=== PATIENT | female | born 1995 | race Caucasian/White ===

== ENCOUNTER 2017-06-03 23:38 | Inpatient (IN) | payer BC ==
[~2017-06-03] VITALS: Ht 175.3 cm; Wt 98.0 kg
[2017-06-04] VITALS (18 sets, daily range): BP systolic 95–143; BP diastolic 64–102; PULSE 83–106; RESP 16–18; TEMP 98.2–98.6; O2SAT 98–100
[2017-06-04] MEDS ORDERED: LACTATED RINGER'S 1000 ML INJ 1,000 ML IV PRN (00:25)
[2017-06-04] MEDS ORDERED: SODIUM CHLORID 0.9% 500 ML INJ 500 ML IV PRN (00:30)
[2017-06-04] MEDS ORDERED: CITRIC ACID-SODIUM CITRATE LIQ 30 ML UDC PO SCH (00:30)
[2017-06-04] MEDS ORDERED: LIDOCAINE HCL 1% 50 ML VIAL INFIL PRN (00:30)
[2017-06-04] MEDS ORDERED: MINERAL OIL 10 ML VIAL TOPICAL PRN (00:30)
[2017-06-04] MEDS ORDERED: OXYTOCIN 30 UNITS-500ML PREMIX 500 ML IV ONE (00:30)
[2017-06-04] MEDS ORDERED: LIDOCAINE HCL 1% 50 ML VIAL I-DERMAL PRN (00:30)
--- NOTE | 2017-06-04 00:30 | HHI.HP ---
HPI Chief Complaint Contractions Date Seen: Jun 04, 2017 Time Seen: 00:25 Travel History International Travel<30 Days: No Contact w/Intl Traveler<30Days: No Known Affected Area: No History of Present Illness HPI Patient is 22-year-old white female at [address] herrera for care presents in labor. She denies bleeding or rupture the membranes, heart rate tracing is reactive, and contractions are noted on the monitor every 3-4 minutes Weeks Gestation: 39 Para: 1 : 3 History Obstetric History Obstetric History One vaginal delivery 1 early loss Social History Alcohol Use: No Tobacco Use: No Substance Abuse: No Allergies-Medications (Allergen,Severity, Reaction): Coded Allergies: No Known Allergies (Unverified , 05/28/16) Home Meds No Active Prescriptions or Reported Meds Review of Systems General / Constitutional: No: Fever, Weight Gain, Chills, Other Eyes: No: Diploplia, Blurred Vision, Visual changes, Pain, Photophobia HENT: No: Headaches, Vertigo, Lightheadedness Cardiovascular: No: Irregular Rhythm, Chest Pain or Discomfort, Palpitations, Tachycardia, Syncope, Varicosities, Edema, Cyanosis Respiratory: No: Cough, Short of Breath, Other Gastrointestinal: No: Nausea, Vomiting, Diarrhea Genitourinary: No: Decreased Urinary Output, Oliguria Musculoskeletal: No: Limited ROM, Weakness, Cramping, Edema, Pain Skin: No Rash, No Itching, No Dryness, No Lumps, No Change in Pigmentation, No Change in Nails, No Alopecia, No Lesions Neurologic: No: Weakness, Dizziness, Syncope, Focal Abnormalities, Coordination Problem, Headache, Slurred Speech, Seizures Psychiatric: No: Depression, Suicidal Ideations, Homicidal Ideation Endocrine: No: Heat Intolerance, Cold Intolerance, Polydipsia, Polyuria, Other Physical Exam Narrative GENERAL: Well-nourished, well-developed patient. SKIN: Warm and dry. HEAD: Normocephalic and atraumatic. EYES: No scleral icterus. No injection or drainage. ENT: No nasal drainage noted. Mucous membranes pink. Airway patent. NECK: Supple, trachea midline. No JVD. CARDIOVASCULAR: Regular rate and rhythm without murmurs, gallops, or rubs. RESPIRATORY: Breath sounds equal bilaterally. No accessory muscle use. BREASTS: Bilateral exam showed no masses , no retractions, no nipple discharge. ABDOMEN/GI: Abdomen soft, non-tender, bowel sounds present, no rebound, no guarding Gravid to [-39] weeks size Fundal Height: [39-] GENITOURINARY: External Genitalia: intact and normal in appearance BUS glands: [-] Cervix: [-] Dilatation: [-6] Effacement: [90-] Station: [-1] Presentation: [vtx-] Membranes: [intact ] Uterine Contractions: [q 3-4 min-] FHT's: Category: [-1] Baseline: [-133] Reactive: [-yes] Variability: [mod-] Decels: [0-] EXTREMITIES: No cyanosis or edema. BACK: Nontender without obvious deformity. No CVA tenderness. NEUROLOGICAL: Awake and alert. Motor and sensory grossly within normal limits. Five out of 5 muscle strength in all muscle groups. Normal speech. Caprini VTE Risk Assessment Caprini VTE Risk Assessment: No/Low Risk (score <= 1) Caprini Risk Assessment Model Point Value = 1 Point Value = 2 Point Value = 3 Point Value = 5 Age 41-60 Minor surgery BMI > 25 kg/m2 Swollen legs Varicose veins or History of unexplained or recurrent spontaneous Oral contraceptives or hormone replacement Sepsis (< 1 month) Serious lung disease, including pneumonia (< 1 month) Abnormal pulmonary function Acute myocardial infarction Congestive heart failure (< 1 month) History of inflammatory bowel disease Medical patient at bed rest Age 61-74 Arthroscopic surgery Major open surgery (> 45 min) Laparoscopic surgery (> 45 min) Malignancy Confined to bed (> 72 hours) Immobilizing plaster cast Central venous access Age >= 75 History of VTE Family history of VTE Factor V Leiden Prothrombin [id number] Lupus anticoagulant Anticardiolipin antibodies Elevated serum homocysteine Heparin-induced thrombocytopenia Other congenital or acquired thrombophilia Stroke (< 1 month) Elective arthroplasty Hip, pelvis, or leg fracture Acute spinal cord injury (< 1 month) Prophylaxis Regimen Total Risk Factor Score Risk Level Prophylaxis Regimen 0-1 Low Early ambulation 2 Moderate Order ONE of the following: *Sequential Compression Device (SCD) *Heparin 5000 units SQ BID 3-4 Higher Order ONE of the following medications: *Heparin 5000 units SQ TID *Enoxaparin/Lovenox 40 mg SQ daily (WT < 150 kg, CrCl > 30 mL/min) *Enoxaparin/Lovenox 30 mg SQ daily (WT < 150 kg, CrCl > 10-29 mL/min) *Enoxaparin/Lovenox 30 mg SQ BID (WT < 150 kg, CrCl > 30 mL/min) AND/OR *Sequential Compression Device (SCD) 5 or more Highest Order ONE of the following medications: *Heparin 5000 units SQ TID (Preferred with Epidurals) *Enoxaparin/Lovenox 40 mg SQ daily (WT < 150 kg, CrCl > 30 mL/min) *Enoxaparin/Lovenox 30 mg SQ daily (WT < 150 kg, CrCl > 10-29 mL/min) *Enoxaparin/Lovenox 30 mg SQ BID (WT < 150 kg, CrCl > 30 mL/min) AND *Sequential Compression Device (SCD) Data Data Orders Orders Ob (2e) Additional Admit Info (06/04/17 00:14) Add Patient To Providers List (06/04/17 ) Admit To Inpatient (06/04/17 ) Vital Signs (Adult) .Per protocol (06/04/17 00:25) Heart (06/04/17 00:25) Amnioinfusion (06/04/17 00:25) Urinary Catheter Management .ONCE (06/04/17 00:25) Diet Liquid (06/04/17 Breakfast) Lactated Ringer's 1000 Ml Inj (Lr 1000 M (06/04/17 00:25) Lactated Ringer's 1000 Ml Inj (Lr 1000 M (06/04/17 00:25) Sodium Chlorid 0.9% 500 Ml Inj (Ns 500 M (06/04/17 00:30) Sodium Chlor 0.9% 1000 Ml Inj (Ns 1000 M (06/04/17 00:45) Lidocaine 1% Inj (50 Ml) (Xylocaine 1% I (06/04/17 00:30) Citric Acid-Sodium Citrate Liq (Bicitra (06/04/17 00:30) Fentanyl Inj (Fentanyl Inj) (06/04/17 00:30) Fentanyl Inj (Fentanyl Inj) (06/04/17 00:30) Complete Blood Count With Diff (06/04/17 00:25) Hold Clot (06/04/17 00:25) Abo/Rh Blood Type (06/04/17 00:25) Urinalysis - C+S If Indicated (06/04/17 00:) Drug Screen, Random Urine (06/04/17:) Resp Oxygen Non Rebreathe Mask (06/04/17 ) ^ Epidural / Intrathecal Infus (06/04/17:) Oxytocin 30 Units-500ml Premix (Pitocin (06/04/17:30) Lidocaine 1% Inj (50 Ml) (Xylocaine 1% I (06/04/17) Light Mineral Oil (Muri-Lube Oil) (06/04/17 00:30) Specimen To Be Collected PRN (06/04/17 00:25) Specimen To Be Collected PRN (06/04/17 00:25) Assessment/Plan Assessment and Plan Patient is 22-year-old white female at 39 weeks presents in labor her cervix is 6 cm dilated with bulging membranes heart rate tracing is reactive and contractions noted on the monitor. Impression--39 weeks in active labor Plan--admit for labor management and anticipate vaginal delivery Shaheen Ashraf II, MD Jun 04, 2017 00:30
[2017-06-04] MEDS: LACTATED RINGER'S 1000 ML INJ 1,000 ML IV SCH ×3 (00:36→16:30)
[2017-06-04] MEDS ORDERED: SODIUM CHLOR 0.9% 1000 ML INJ 1,000 ML IV PRN (00:45)
[2017-06-04 01:00] LABS: AUTOMATED NEUTROPHIL # 10.5 TH/MM3 (1.8-7.7); BASOPHIL # 0.1 TH/MM3 (0-0.2); BASOPHIL % 0.7 % (0.0-2.0); EOSINOPHIL # 0.1 TH/MM3 (0-0.4); EOSINOPHIL % 0.6 % (0.0-4.0); HEMATOCRIT 38.5 % (35.0-46.0); HEMO FLAGS DIFF FINAL; LYMPH % 20.1 % (9.0-44.0); LYMPHOCYTE # 2.9 TH/MM3 (1.0-4.8); MEAN CELL VOLUME 82.8 FL (80.0-100.0); MEAN CORPUSCULAR HEMOGLOBIN 27.2 PG (27.0-34.0); MEAN CORPUSCULAR HGB CONC 32.9 % (32.0-36.0); MONO % 6.7 % (0.0-8.0); NEUT % 71.9 % (16.0-70.0); PLATELET COUNT 240 TH/MM3 (150-450); RED BLOOD COUNT 4.66 MIL/MM3 (4.00-5.30); RED CELL DISTRIBUTION WIDTH 14.8 % (11.6-17.2); WHITE BLOOD COUNT 14.6 TH/MM3 (4.0-11.0)
[2017-06-04 01:04] LABS: BLOOD, URINE SMALL (NEG); COMMENT (UR) CULT NOT INDICATED; CULTURE IF INDICATED CULT NOT INDICATED; GLUCOSE,URINE NEG (NEG); KETONE, URINE NEG (NEG); MUCUS URINE FEW /lpf (OCC); NITRITE,URINE NEG (NEG); PH, URINE 6.5 (5.0-8.5); SQUAMOUS EPITHELIAL CELL URINE 1 /hpf (0-5); URINE COLOR LIGHT-YELLOW (YELLW/STRAW)
[2017-06-04] MEDS ORDERED: ePHEDrine/NS 25 MG/5 ML SYR ONE (01:11)
[2017-06-04] MEDS ORDERED: fentaNYL 2MCG-BUPIV 0.125% INJ 100 ML ONE (01:11)
[2017-06-04] MEDS ORDERED: fentaNYL 2MCG-BUPIV 0.125% 100 ML EPIDURAL SCH (01:30)
[2017-06-04] MEDS ORDERED: NO SYSTEM NARCOTICS PRN (01:30)
[2017-06-04] MEDS ORDERED: DO NOT ADMINISTER ANTICOAGULANTS PRN (01:30)
[2017-06-04] MEDS ORDERED: ePHEDrine/NS 25 MG/5 ML SYR IV PUSH PRN (02:00)
--- NOTE | 2017-06-04 07:39 | HHI.OB ---
Subjective Post Day: 1 Remarks PPD # 1 s/p doing well Objective Vitals/I&O Vital Signs Date Time Temp Pulse Resp B/P (MAP) Pulse Ox O2 Delivery O2 Flow Rate FiO2 06/04/17 03:31 84 120/72 (88) 06/04/17 03:21 16 06/04/17 03:16 86 143/102 (116) 06/04/17 03:00 90 137/101 (113) 06/04/17 02:45 97 119/87 (98) 06/04/17 02:44 18 06/04/17 02:00 84 131/85 (100) 06/04/17 01:55 101 06/04/17 01:55 95 125/79 (94) 100 06/04/17 01:51 106 95/64 (74) 06/04/17 01:50 96 100 06/04/17 01:45 99 06/04/17 01:45 95 127/73 (91) 06/04/17 01:45 101 06/04/17 01:40 98 06/04/17 01:40 92 132/77 (95) 06/04/17 01:40 93 06/04/17 01:35 83 06/04/17 01:35 85 116/85 (95) 06/04/17 01:35 100 06/04/17 01:30 100 06/04/17 01:30 84 06/04/17 01:30 88 126/84 (98) 06/04/17 01:26 85 127/80 (96) 06/04/17 01:22 87 06/04/17 01:22 131/83 (99) Objective Remarks GENERAL: Well-nourished, well-developed patient. CARDIOVASCULAR: Regular rate and rhythm without murmurs, gallops, or rubs. RESPIRATORY: Breath sounds equal bilaterally. No accessory muscle use. ABDOMEN/GI: Abdomen soft, non-tender. Fundus: Firm, non-tender at umbilicus. GENITOURINARY: Light to moderate bleeding. EXTREMITIES: No cyanosis or edema, non-tender, without signs of DVT. Medications and IVs Current Medications Medications (Trade) Dose Ordered Sig/Lesli Route Start Time Stop Time Status Last Admin Lactated Ringer's 1,000 ml @ 125 mls/hr Q8H IV 06/04/17 00:25 06/04/17 01:53 Lactated Ringer's 1,000 ml @ 3,000 mls/hr Q20M PRN IV 06/04/17 00:25 Sodium Chloride 500 ml @ 1,000 mls/hr ONCE PRN IV 06/04/17 00:30 06/05/17 00:29 Sodium Chloride 1,000 ml @ 100 mls/hr Q10H PRN IV 06/04/17 00:45 (Xylocaine 1% Inj (50 ml)) 0.1 ml UNSCH X1 PRN I-DERMAL 06/04/17 00:30 06/07/17 00:29 (Bicitra Liq) 30 ml [employer] PO 06/04/17 00:30 06/08/17 00:29 (fentaNYL INJ) 50 mcg Q1H PRN IV PUSH 06/04/17 00:30 (fentaNYL INJ) 100 mcg Q1H PRN IV PUSH 06/04/17 00:30 (Xylocaine 1% Inj (50 ml)) 10 ml UNSCH X1 PRN INFIL 06/04/17 00:30 06/06/17 00:29 (Muri-Lube Oil) 10 ml UNSCH PRN TOPICAL 06/04/17 00:30 Miscellaneous Information No systemic narcotics to be given except... UNSCH PRN .XX 06/04/17 01:30 06/05/17 01:29 Miscellaneous Information DO NOT ADMINISTER ANY ANTICOAGUL... UNSCH PRN .XX 06/04/17 01:30 06/05/17 01:29 Fentanyl/ Bupivacaine HCl 100 ml @ 0 mls/hr TITRATE EPIDURAL 06/04/17 01:30 06/04/17 01:53 (ePHEDrine/NS 25 MG/5 ML SYR) 10 mg UNSCH PRN IV PUSH 06/04/17 02:00 06/05/17 01:59 Assessment/Plan Assessment and Plan PPD # 1 s/p doing well, routine care Ginna Bee MD Jun 04, 2017 07:39
--- NOTE | 2017-06-05 07:38 | HHI.DCPOC ---
Discharge Care Plan Report Symptoms to Your Doctor -Temperature above 100.5 degrees -Redness, of incision or excessive or foul smelling drainage -Unusual pain or calf pain -Increased vaginal bleeding -Painful or difficulty urinating -Feelings of extreme sadness or anxiety after 2 weeks Goals to Promote Your Health * To prevent worsening of your condition and complications * To maintain your health at the optimal level Directions to Meet Your Goals Take your medications as prescribed Follow your dietary instruction Follow activity as directed Ensure plenty of rest for recovery Drink fluids for hydration Keep your appointments as scheduled Take your immunizations and boosters as scheduled If your symptoms worsen call your PCP, if no PCP go to Urgent Care Center or Emergency Room Smoking is Dangerous to Your Health. Avoid second hand smoke Call the 24-hour crisis hotline for domestic abuse at Brian Garcia MD Jun 05, 2017 07:38
[2017-06-05 08:40] VITALS: BP 137/86; PULSE 100; RESP 18; TEMP 98.3; O2SAT 97
[2017-06-05] MEDS ORDERED: DIPHTH/TETANUS/ACEL PERTUSSIS (BOOSTER) 0.5 ML VIAL/PFS IM ONE (09:30)
[2017-06-05] MEDS ORDERED: INFLUENZA VIRUS VACCINE (QUADRIVALENT) 0.5 ML SYR IM ONE (10:00)
--- NOTE | 2017-06-05 13:00 | MD ---
cc: DIPAK RAY M.D. ADMISSION DATE: 06/04/2017 DISCHARGE DATE: 06/05/2017 ADMITTING DIAGNOSIS Term , active labor. DISCHARGE DIAGNOSIS Term , active labor, delivered. HISTORY OF PRESENT ILLNESS This is a 22-year-old white female para 1-0-1-1 who had an EDC of 06/07/2017 by early ultrasound. Her course was benign. Her Strep culture was negative. She was admitted in active labor on the morning of 06/04/2017, received epidural anesthesia and rapidly progressed to a spontaneous vaginal every over intact perineum, a viable vigorous female weighing 7 pounds 2 ounces. The baby is named and she is breast feeding. She had no episiotomy or tears and was attended by Dr. Ashraf, hospitalist due to the rapid delivery. did extremely well, requested discharge on the first day. She was advised NPV, light activity, no driving, return to see me in six weeks and call for abnormal pain, bleeding, temperature, signs infection or depression. Take her vitamins at home. MD MEKA Edmondson/MIHIR /7:08 AM /12:52 PM
== END 2017-06-05 11:39 | disposition home or self-care (01) | DRG 775 ==
LOC: HOBED 23:38 → H2EB 06-04 00:15 → H1EA 06-04 05:01
PROVIDERS: ADMIT Obstetrics & Gynecology; ATTEND Obstetrics & Gynecology
PROC: 10E0XZZ Delivery of Products of Conception, External Approach (ICD-10-PCS; principal; 2017-06-04)
DX: O62.3 Precipitate labor (principal); Z23 Encounter for immunization; Z37.0 Single live birth; Z3A.39 39 weeks gestation of pregnancy
CPT/HCPCS: 80307; 81001; 85025; 86703; 86900; 86901; 90686; 90715; J2590; J7120; Q2038